=== PATIENT | female | born 1985 | race Caucasian/White ===

== ENCOUNTER 2018-04-09 03:19 | Emergency (ER) | payer BC ==
[~2018-04-09] VITALS: Ht 170.2 cm; Wt 70.3 kg
[~2018-04-09 03:19] MED LIST: UNITHROID50 MCG PO
[2018-04-09] MEDS ORDERED: SARAFEM20 MG PO (03:33)
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
== END 2018-04-09 07:06 | disposition home or self-care (01) ==
LOC: ED 03:19
DX: R45.851 Suicidal ideations (principal); F10.129 Alcohol abuse with intoxication, unspecified; Y90.7 Blood alcohol level of 200-239 mg/100 ml; E03.9 Hypothyroidism, unspecified; Z88.1 Allergy status to other antibiotic agents; Z88.0 Allergy status to penicillin; Z79.899 Other long term (current) drug therapy
CPT/HCPCS: 36415; 80053; 80176; 81001; 84443; 84703; 85025; 99284; G0480